=== PATIENT | male | born 1995 | race Two or more races ===

== ENCOUNTER 2023-09-09 04:11 | Emergency (ER) | payer MEDICAID ==
[~2023-09-09] VITALS: Ht 157.5 cm; Wt 72.6 kg
[2023-09-09 10:15] VITALS: BP 122/65; TEMP 97.9; O2SAT 97
== END 2023-09-09 10:15 | disposition home or self-care (01) ==
LOC: ER 04:21
DX: F10.129 Alcohol abuse with intoxication, unspecified (principal); Y90.9 Presence of alcohol in blood, level not specified
CPT/HCPCS: 70450-TC; 72125-TC